=== PATIENT | female | born 1980 | race Caucasian/White ===

== ENCOUNTER 2017-01-27 17:23 | Emergency (ER) | payer MEDICAID ==
[~2017-01-27] VITALS: Ht 162.6 cm; Wt 122.2 kg
[2017-01-27 17:26] VITALS: BP 116/75
[2017-01-27] MEDS ORDERED: DIAZEPAM 5 MG/ML, 2ML IM STA (18:12)
[2017-01-27] MEDS ORDERED: DIAZEPAM 5 MG TABLET ONE (18:22)
[2017-01-27] MEDS ORDERED: OXYcodone/APAP 5/325MG TABLET ONE (18:22)
[2017-01-27] MEDS ORDERED: OXYcodone/APAP 5/325MG TABLET PO ONE (18:30)
== END 2017-01-27 19:21 | disposition home or self-care (01) ==
LOC: ED 19:15
DX: S39.012A Strain of muscle, fascia and tendon of lower back, initial encounter (principal); M51.36 Other intervertebral disc degeneration, lumbar region; M54.41 Lumbago with sciatica, right side; X58.XXXA Exposure to other specified factors, initial encounter; Y93.89 Activity, other specified; Y92.89 Other specified places as the place of occurrence of the external cause; Y99.9 Unspecified external cause status
CPT/HCPCS: 72110; 96372; 99284; J3360; J7512

== ENCOUNTER 2017-04-28 16:31 | Emergency (ER) | payer MEDICAID ==
[~2017-04-28] VITALS: Ht 162.6 cm; Wt 117.1 kg
[2017-04-28] MEDS ORDERED: KETOROLAC 30 MG/1 ML IM ONE (17:30)
[2017-04-28] MEDS ORDERED: DIAZEPAM 5 MG TABLET PO ONE (17:30)
[2017-04-28] MEDS ORDERED: DIAZEPAM 5 MG TABLET ONE (17:37)
[2017-04-28] MEDS ORDERED: KETOROLAC 30 MG/1 ML ONE (17:37)
[2017-04-28 18:44] VITALS: BP 116/78
== END 2017-04-28 19:48 | disposition home or self-care (01) ==
LOC: ED 19:42
DX: M54.41 Lumbago with sciatica, right side (principal)
CPT/HCPCS: 96372; 99283; J1885

== ENCOUNTER 2017-06-28 08:01 | Emergency (ER) | payer MEDICAID ==
[~2017-06-28] VITALS: Ht 162.6 cm; Wt 119.8 kg
[2017-06-28 09:05] LABS: RAPID INFLUENZA A Negative (Negative); RAPID INFLUENZA B Negative (Negative)
[2017-06-28 10:18] VITALS: BP 98/45
== END 2017-06-28 10:29 | disposition home or self-care (01) ==
LOC: ED 08:47
DX: J20.8 Acute bronchitis due to other specified organisms (principal)
CPT/HCPCS: 71020; 87400; 93005; 99285

== ENCOUNTER 2017-09-16 16:37 | Emergency (ER) | payer MEDICAID ==
[~2017-09-16] VITALS: Ht 162.6 cm; Wt 118.9 kg
[2017-09-16] MEDS ORDERED: SODIUM CHLORIDE 0.9% 1,000ML IVBOLUS ONE (17:00)
[2017-09-16 17:29] LABS: BASOPHILS # (AUTO) 0.09 x10^3/uL (0-0.1); BASOPHILS % (AUTO) 1 % (0-1); EOSINOPHILS # (AUTO) 0.15 x10^3/uL (0-0.4); EOSINOPHILS % (AUTO) 1 % (1-7); LYMPHOCYTES # (AUTO) 2.13 x10^3/uL (1-3.4); LYMPHOCYTES % (AUTO) 20 % (22-44); MD NO; MEAN CORPUSCULAR HEMOGLOBIN 28.5 pg (27.0-34.8); MEAN CORPUSCULAR HGB CONC 33.1 g/dL (32.4-35.8); MEAN CORPUSCULAR VOLUME 86.1 fL (80-100); MEAN PLATELET VOLUME 8.4 fL (7.4-10.4); MONOCYTES # (AUTO) 0.61 x10^3/uL (0.2-0.8); MONOCYTES % (AUTO) 6 % (2-9); NEUTROPHILS # (AUTO) 7.93 x10^3/uL (1.8-6.8); NEUTROPHILS % (AUTO) 73 % (42-75); PLATELET COUNT 362 x10^3/uL (130-400); RED BLOOD COUNT 4.84 x10^6/uL (3.82-5.3); RED CELL DISTRIBUTION WIDTH 14.9 % (9.6-15.2)
[2017-09-16 17:33] LABS: ALBUMIN 3.7 g/dL (3.4-5.0); ANION GAP 7 mmol/L (5-15); CALCIUM 9.2 mg/dL (8.5-10.1); CHLORIDE 106 mmol/L (98-107)
[2017-09-16 17:36] LABS: ALANINE AMINOTRANSFERASE 25 U/L (12-78); ALKALINE PHOSPHATASE 68 U/L (45-117); BILIRUBIN,TOTAL 0.5 mg/dL (0.2-1.0); CREATININE 1.22 mg/dL (0.55-1.02)
[2017-09-16 21:27] VITALS: BP 117/68
== END 2017-09-16 21:59 | disposition home or self-care (01) ==
LOC: ED 21:58
DX: R42 Dizziness and giddiness (principal)
CPT/HCPCS: 36415; 70450; 80053; 84703; 85025; 93005; 99285

== ENCOUNTER 2018-04-29 08:59 | Emergency (ER) | payer MEDICAID ==
[~2018-04-29] VITALS: Ht 162.6 cm; Wt 117.1 kg
[2018-04-29 09:06] VITALS: BP 140/81
[2018-04-29 09:52] LABS: ALBUMIN 3.6 g/dL (3.4-5.0); ANION GAP 7 mmol/L (5-15); CALCIUM 8.9 mg/dL (8.5-10.1); CHLORIDE 109 mmol/L (98-107); CREATININE 0.84 mg/dL (0.55-1.02)
[2018-04-29 09:53] LABS: BASOPHILS # (AUTO) 0.06 x10^3/uL (0-0.1); BASOPHILS % (AUTO) 1 % (0-1); EOSINOPHILS # (AUTO) 0.18 x10^3/uL (0-0.4); EOSINOPHILS % (AUTO) 2 % (1-7); LYMPHOCYTES # (AUTO) 1.27 x10^3/uL (1-3.4); LYMPHOCYTES % (AUTO) 16 % (22-44); MD NO; MEAN CORPUSCULAR HEMOGLOBIN 28.6 pg (27.0-34.8); MEAN CORPUSCULAR HGB CONC 33.1 g/dL (32.4-35.8); MEAN CORPUSCULAR VOLUME 86.5 fL (80-100); MEAN PLATELET VOLUME 8.9 fL (7.4-10.4); MONOCYTES # (AUTO) 0.58 x10^3/uL (0.2-0.8); MONOCYTES % (AUTO) 7 % (2-9); NEUTROPHILS # (AUTO) 5.81 x10^3/uL (1.8-6.8); NEUTROPHILS % (AUTO) 74 % (42-75); PLATELET COUNT 338 x10^3/uL (130-400); RED BLOOD COUNT 4.53 x10^6/uL (3.82-5.3)
[2018-04-29 10:21] LABS: MICROSCOPIC AUTO
[2018-04-29 10:22] LABS: CULTURE INDICATED? NO
== END 2018-04-29 11:43 | disposition home or self-care (01) ==
LOC: ED 10:28
DX: R10.2 Pelvic and perineal pain (principal); Z90.49 Acquired absence of other specified parts of digestive tract
CPT/HCPCS: 36415; 76830; 80048; 81001; 82040; 84703; 85025; 99285

== ENCOUNTER 2018-08-12 17:44 | Emergency (ER) | payer MEDICAID ==
[~2018-08-12] VITALS: Ht 165.1 cm; Wt 116.6 kg
[2018-08-12 18:28] LABS: BASOPHILS # (AUTO) 0.03 x10^3/uL (0-0.1); BASOPHILS % (AUTO) 0 % (0-1); EOSINOPHILS # (AUTO) 0.17 x10^3/uL (0-0.4); EOSINOPHILS % (AUTO) 2 % (1-7); LYMPHOCYTES # (AUTO) 1.92 x10^3/uL (1-3.4); LYMPHOCYTES % (AUTO) 22 % (22-44); MD NO; MEAN CORPUSCULAR HEMOGLOBIN 29.3 pg (27.0-34.8); MEAN CORPUSCULAR HGB CONC 33.7 g/dL (32.4-35.8); MEAN PLATELET VOLUME 8.4 fL (7.4-10.4); MONOCYTES # (AUTO) 0.55 x10^3/uL (0.2-0.8); MONOCYTES % (AUTO) 6 % (2-9); NEUTROPHILS # (AUTO) 6.07 x10^3/uL (1.8-6.8); NEUTROPHILS % (AUTO) 69 % (42-75); PLATELET COUNT 358 x10^3/uL (130-400); RED BLOOD COUNT 4.32 x10^6/uL (3.82-5.3); RED CELL DISTRIBUTION WIDTH 14.4 % (9.6-15.2)
[2018-08-12 18:41] LABS: ALBUMIN 3.6 g/dL (3.4-5.0); ANION GAP 8 mmol/L (5-15); CALCIUM 8.9 mg/dL (8.5-10.1); CHLORIDE 107 mmol/L (98-107)
[2018-08-12 18:59] LABS: CREATININE 0.82 mg/dL (0.55-1.02)
--- NOTE | 2018-08-12 19:16 | NUR ---
PT. TO ROOM FROM LOBBY. REPORT FROM VIOLA VILLALOBOS TO ASSUME FULL PT. CARE AT THIS TIME.
--- NOTE | 2018-08-12 19:27 | NUR ---
PT. OUT OF ROOM FOR US.
[2018-08-12 20:15] VITALS: BP 109/75
== END 2018-08-12 20:16 | disposition home or self-care (01) ==
LOC: ED 20:10
DX: O03.9 Complete or unspecified spontaneous abortion without complication (principal)
CPT/HCPCS: 36415; 76801; 80048; 82040; 84702; 85025; 86901; 99284

== ENCOUNTER 2019-09-18 16:59 | Emergency (ER) | payer MEDICAID ==
[~2019-09-18] VITALS: Ht 165.1 cm; Wt 120.0 kg
--- NOTE | 2019-09-18 17:23 | NUR ---
MANAGER ASSURANCE: PT AMBULATORY TO ROOM FROM LOBBY
--- NOTE | 2019-09-18 17:37 | NUR ---
THIS IS A 38 YO F W/ C/O BILAT TINGLING/PAIN IN HANDS THAT RADIATES INTO UPPR ARM "FOR MONTHS BUT HAS GOTTEN PROGRESSIVELY WORSE. PT REPORTS IT IS KEEPING HER UP AT NIGHT. HAS TAKEN TYLENOL W/ NO RELIEF. CMS INTACT. VS STABLE. NADN. PT CONNECTED TO MONITORING. SITTING ON [email or web address] W/ CALL LIGHT IN REACH. AWAITING ED EVAL.
[2019-09-18 17:40] VITALS: BP 126/84
--- NOTE | 2019-09-18 18:45 | NUR ---
Patient given discharge instructions and they have confirmed that they understand the instructions. Patient ambulatory with steady gait.
== END 2019-09-18 18:47 | disposition home or self-care (01) ==
LOC: ED 18:38
DX: O26.892 Other specified pregnancy related conditions, second trimester (principal); G56.01 Carpal tunnel syndrome, right upper limb; Z3A.16 16 weeks gestation of pregnancy; Z90.49 Acquired absence of other specified parts of digestive tract
CPT/HCPCS: 29125; 99283

== ENCOUNTER 2019-10-20 20:04 | Outpatient (CLI) | payer MEDICAID ==
[~2019-10-20] VITALS: Ht 162.6 cm; Wt 121.8 kg
== END 2019-10-20 20:50 | disposition home or self-care (01) ==
LOC: LDOP 20:04
PROVIDERS: ATTEND Obstetrics & Gynecology
DX: O46.92 Antepartum hemorrhage, unspecified, second trimester (principal); Z3A.22 22 weeks gestation of pregnancy
CPT/HCPCS: 99211; G0463

== ENCOUNTER 2020-01-09 11:38 | Emergency (ER) | payer MEDICAID ==
[~2020-01-09] VITALS: Ht 175.3 cm; Wt 130.4 kg
[2020-01-09 11:40] VITALS: BP 139/85
== END 2020-01-09 13:35 | disposition home or self-care (01) ==
LOC: ED 12:13
DX: O99.89 Other specified diseases and conditions complicating pregnancy, childbirth and the puerperium (principal); O09.513 Supervision of elderly primigravida, third trimester; G56.01 Carpal tunnel syndrome, right upper limb; Z3A.32 32 weeks gestation of pregnancy
CPT/HCPCS: 99281; 99282

== ENCOUNTER 2020-01-19 12:01 | Outpatient (CLI) | payer MEDICAID ==
[~2020-01-19] VITALS: Ht 165.1 cm; Wt 128.0 kg
== END 2020-01-19 13:35 | disposition home or self-care (01) ==
LOC: LDOP 12:01
PROVIDERS: ATTEND Obstetrics & Gynecology
DX: O44.53 Low lying placenta with hemorrhage, third trimester (principal); O24.419 Gestational diabetes mellitus in pregnancy, unspecified control; Z3A.35 35 weeks gestation of pregnancy; Z90.49 Acquired absence of other specified parts of digestive tract
CPT/HCPCS: 59025; 99211; G0463

== ENCOUNTER 2020-02-05 22:44 | Inpatient (IN) | payer MEDICAID ==
[~2020-02-05] VITALS: Ht 165.1 cm; Wt 130.0 kg
[2020-02-05 23:23] VITALS: BP 166/106
[2020-02-05] MEDS: LACTATED RINGERS 1,000 ML IV SCH (23:40)
[2020-02-05 23:43] LABS: BASOPHILS # (AUTO) 0.02 x10^3/uL (0-0.1); BASOPHILS % (AUTO) 0 % (0-1); EOSINOPHILS # (AUTO) 0.17 x10^3/uL (0-0.4); EOSINOPHILS % (AUTO) 2 % (1-7); LYMPHOCYTES # (AUTO) 1.34 x10^3/uL (1-3.4); LYMPHOCYTES % (AUTO) 16 % (22-44); MD NO; MEAN CORPUSCULAR HEMOGLOBIN 26.9 pg (27.0-34.8); MEAN CORPUSCULAR HGB CONC 32.6 g/dL (32.4-35.8); MEAN CORPUSCULAR VOLUME 82.6 fL (80-100); MEAN PLATELET VOLUME 9.3 fL (7.4-10.4); MONOCYTES # (AUTO) 0.65 x10^3/uL (0.2-0.8); MONOCYTES % (AUTO) 8 % (2-9); NEUTROPHILS # (AUTO) 6.47 x10^3/uL (1.8-6.8); NEUTROPHILS % (AUTO) 75 % (42-75); PLATELET COUNT 300 x10^3/uL (130-400); RED BLOOD COUNT 3.74 x10^6/uL (3.82-5.3); RED CELL DISTRIBUTION WIDTH 15.4 % (9.6-15.2)
[2020-02-05 23:56] LABS: ALANINE AMINOTRANSFERASE 19 U/L (12-78); ALBUMIN 2.3 g/dL (3.4-5.0); ANION GAP 8 mmol/L (5-15); CALCIUM 9.6 mg/dL (8.5-10.1); CHLORIDE 111 mmol/L (98-107); CREATININE 0.75 mg/dL (0.55-1.02)
[2020-02-05 23:58] LABS: ALKALINE PHOSPHATASE 174 U/L (45-117); BILIRUBIN,TOTAL 0.3 mg/dL (0.2-1.0); TOTAL PROTEIN 6.5 g/dL (6.4-8.2)
[2020-02-06 00:07] LABS: INTERNATIONAL NORMALIZED RATIO 0.89 (0.93-1.1); PROTHROMBIN TIME 9.4 Seconds (9.6-11.5)
[2020-02-06 00:24] LABS: MICROSCOPIC INDICATED
[2020-02-06 00:37] LABS: CREATININE,URINE RANDOM 74.6 mg/dL
[2020-02-06] MEDS: LACTATED RINGERS 1,000 ML IV SCH ×7 (03:30→23:30)
[2020-02-06] MEDS ORDERED: PENICILLIN GK 5,000,000 UNITS in DEXTROSE 5% 100 ML IVPB ONE (06:30)
[2020-02-06] MEDS ORDERED: NEWBORN KIT ONE (06:31)
[2020-02-06] MEDS ORDERED: SODIUM CITRATE/CITRIC ACID 30 ML UDC ONE (06:32)
[2020-02-06] MEDS ORDERED: METOCLOPRAMIDE 5 MG/ML, 2ML ONE (06:32)
[2020-02-06] MEDS ORDERED: PENICILLIN GK 2,500,000 UNITS in DEXTROSE 5% 100 ML IVPB SCH (07:00)
[2020-02-06] MEDS ORDERED: LACTATED RINGERS 1,000 ML IV SCH (08:38)
[2020-02-06] MEDS ORDERED: LACTATED RINGERS 1,000 ML IVBOLUS ONE (09:00)
[2020-02-06] MEDS ORDERED: METOCLOPRAMIDE 5 MG/ML, 2ML IV ONE (09:00)
[2020-02-06] MEDS ORDERED: SODIUM CITRATE/CITRIC ACID 30 ML UDC PO ONE (09:00)
[2020-02-06] MEDS ORDERED: FENTANYL PF 100 MCG/2ML ONE ×2 (10:09→14:58)
[2020-02-06] MEDS ORDERED: OXYTOCIN 30U/ 0.9% NaCL 500ML 500 ML ONE ×2 (10:21→17:05)
[2020-02-06] MEDS ORDERED: OXYTOCIN 30U/ 0.9% NaCL 500ML ONE (11:16)
[2020-02-06] MEDS ORDERED: OXYTOCIN 10 UNITS/ML, 1ML ONE ×4 (12:01)
[2020-02-06] MEDS ORDERED: CEFAZOLIN 1,000 MG ONE ×3 (12:01)
[2020-02-06] MEDS ORDERED: EPHEDRINE 50 MG/ML, 1ML ONE (12:05)
[2020-02-06] MEDS ORDERED: KETOROLAC 30 MG/1 ML ONE (12:09)
[2020-02-06] MEDS ORDERED: EPHEDRINE 50 MG/ML, 1ML IM PRN (12:30)
[2020-02-06] MEDS ORDERED: hydrALAzine 20 MG/ML, 1ML IV PRN ×2 (12:30→16:00)
[2020-02-06] MEDS ORDERED: ACETAMINOPHEN 325 MG TABLET PO PRN ×2 (12:30)
[2020-02-06] MEDS ORDERED: DIPHENHYDRAMINE 50 MG/ML, 1ML IVPush PRN ×2 (12:30→16:00)
[2020-02-06] MEDS ORDERED: morphine SULFATE 10 MG/ML, 1ML IVPush PRN (12:30)
[2020-02-06] MEDS ORDERED: EPHEDRINE 50 MG/ML, 1ML IVPush PRN ×2 (12:30→16:00)
[2020-02-06] MEDS ORDERED: MISOPROSTOL 200 MCG TABLET PR PRN (12:30)
[2020-02-06] MEDS ORDERED: ONDANSETRON 2MG/ML, 2ML IVPush PRN ×2 (12:30→16:00)
[2020-02-06] MEDS ORDERED: METOCLOPRAMIDE 5 MG/ML, 2ML IVPush PRN ×2 (12:30→16:00)
[2020-02-06] MEDS ORDERED: OXYcodone 5 MG/5 ML ORAL.SOL UDC PO PRN ×2 (12:30→16:00)
[2020-02-06] MEDS: KETOROLAC 30 MG/1 ML IV SCH ×2 (12:30→18:32)
[2020-02-06] MEDS ORDERED: FENTANYL PF 100 MCG/2ML IV PRN ×2 (12:30→16:00)
[2020-02-06] MEDS ORDERED: CARBOPROST TROMETHAMINE 250 MCG/ML, 1ML IM PRN (12:30)
[2020-02-06] MEDS ORDERED: LABETALOL 5MG/ML, 20ML IV PRN ×2 (12:30→16:00)
[2020-02-06] MEDS ORDERED: MORPHINE SULFATE 4 MG/ML, 1ML IVPush PRN (12:30)
[2020-02-06] MEDS ORDERED: ACETAMINOPHEN 325 MG TABLET ONE (13:33)
[2020-02-06] MEDS ORDERED: morphine SULFATE 10 MG/ML, 1ML ONE (13:57)
[2020-02-06] MEDS: morphine SULFATE 10 MG/ML, 1ML IVPush PRN ×2 (14:00→14:19)
[2020-02-06] MEDS: OXYTOCIN 30U/ 0.9% NaCL 500ML 500 ML IV SCH ×2 (14:18→17:08)
[2020-02-06] MEDS ORDERED: HYDROmorphone 2 MG/ML, 1ML ONE (14:27)
[2020-02-06] MEDS ORDERED: TRANEXAMIC ACID 100 MG/ML, 10ML ONE (14:29)
[2020-02-06 14:57] LABS: MEAN CORPUSCULAR HEMOGLOBIN 26.7 pg (27.0-34.8); MEAN CORPUSCULAR HGB CONC 32.1 g/dL (32.4-35.8); MEAN CORPUSCULAR VOLUME 83.1 fL (80-100); MEAN PLATELET VOLUME 9.3 fL (7.4-10.4); PLATELET COUNT 291 x10^3/uL (130-400); RED BLOOD COUNT 3.28 x10^6/uL (3.82-5.3); RED CELL DISTRIBUTION WIDTH 15.2 % (9.6-15.2)
[2020-02-06] MEDS ORDERED: hydrALAzine 20 MG/ML, 1ML ONE (14:59)
[2020-02-06] MEDS ORDERED: CARBOPROST TROMETHAMINE 250 MCG/ML, 1ML IM ONE (15:00)
[2020-02-06] MEDS ORDERED: TRANEXAMIC ACID 100 MG/ML, 10ML TP ONE (15:00)
[2020-02-06] MEDS ORDERED: MISOPROSTOL 200 MCG TABLET ONE (15:00)
[2020-02-06] MEDS ORDERED: HYDROmorphone 2 MG/ML, 1ML IVPush PRN (15:00)
[2020-02-06] MEDS ORDERED: DIPHENOXYLATE/ATROPINE TABLET PO PRN (15:00)
[2020-02-06 15:09] LABS: BASOPHILS # (AUTO) 0.01 x10^3/uL (0-0.1); BASOPHILS % (AUTO) 0 % (0-1); EOSINOPHILS # (AUTO) 0.24 x10^3/uL (0-0.4); EOSINOPHILS % (AUTO) 2 % (1-7); LYMPHOCYTES # (AUTO) 1.39 x10^3/uL (1-3.4); LYMPHOCYTES % (AUTO) 11 % (22-44); MD SCAN; MONOCYTES # (AUTO) 0.64 x10^3/uL (0.2-0.8); MONOCYTES % (AUTO) 5 % (2-9); NEUTROPHILS % (AUTO) 82 % (42-75)
[2020-02-06 15:31] LABS: PROTIME 9.6 Seconds (9.6-11.5)
[2020-02-06] MEDS ORDERED: HYDROmorphone 1 MG/ML, 1ML INJ IVPush PRN (16:00)
[2020-02-06] MEDS ORDERED: LABETALOL 100 MG TABLET ONE (16:10)
[2020-02-06 16:11] LABS: D-DIMER (DIC) 5.03 ug/mlFEU (0.00-0.52)
[2020-02-06] MEDS ORDERED: FUROSEMIDE 20 MG/2 ML IV ONE (17:00)
[2020-02-06] MEDS ORDERED: CEFAZOLIN 1,000 MG IVPB ONE (17:00)
[2020-02-06] MEDS: POTASSIUM CHLORIDE 20 MEQ TAB.ER.PRT PO SCH (17:26)
[2020-02-06] MEDS ORDERED: CEFAZOLIN 3,000 MG in SODIUM CHLORIDE 0.9% 100 ML IV ONE (17:30)
[2020-02-06 18:29] VITALS: BP 136/90
[2020-02-06] MEDS: LABETALOL 100 MG TABLET PO SCH (18:32)
[2020-02-06 19:50] VITALS: BP 119/84
[2020-02-06 21:07] LABS: BASOPHILS # (AUTO) 0.02 x10^3/uL (0-0.1); BASOPHILS % (AUTO) 0 % (0-1); EOSINOPHILS # (AUTO) 0.14 x10^3/uL (0-0.4); EOSINOPHILS % (AUTO) 1 % (1-7); LYMPHOCYTES # (AUTO) 1.05 x10^3/uL (1-3.4); LYMPHOCYTES % (AUTO) 9 % (22-44); MD NO; MEAN CORPUSCULAR HEMOGLOBIN 27.1 pg (27.0-34.8); MEAN CORPUSCULAR HGB CONC 32.6 g/dL (32.4-35.8); MEAN CORPUSCULAR VOLUME 83.2 fL (80-100); MEAN PLATELET VOLUME 9.6 fL (7.4-10.4); MONOCYTES % (AUTO) 7 % (2-9); NEUTROPHILS # (AUTO) 9.86 x10^3/uL (1.8-6.8); NEUTROPHILS % (AUTO) 83 % (42-75); PLATELET COUNT 234 x10^3/uL (130-400); RED BLOOD COUNT 3.36 x10^6/uL (3.82-5.3); RED CELL DISTRIBUTION WIDTH 15.1 % (9.6-15.2)
[2020-02-06] MEDS: OXYcodone/APAP 5/325MG TABLET PO PRN (21:16)
[2020-02-07] VITALS (9 sets, daily range): BP systolic 94–135; BP diastolic 61–85
[2020-02-07] MEDS: KETOROLAC 30 MG/1 ML IV SCH ×4 (00:22→18:26)
[2020-02-07] MEDS: OXYcodone/APAP 5/325MG TABLET PO PRN ×5 (01:14→19:59)
[2020-02-07] MEDS: LACTATED RINGERS 1,000 ML IV SCH ×8 (04:29→23:30)
[2020-02-07] MEDS: LABETALOL 100 MG TABLET PO SCH ×2 (08:00→17:47)
[2020-02-07] MEDS: PRENATAL VIT/IRON/FA 1 EACH TABLET PO SCH (08:26)
[2020-02-07] MEDS: DOCUSATE 100 MG CAPSULE PO PRN ×2 (08:26→19:59)
[2020-02-07] MEDS: OXYTOCIN 30U/ 0.9% NaCL 500ML 500 ML IV SCH ×2 (08:29→17:48)
[2020-02-07] MEDS: POTASSIUM CHLORIDE 20 MEQ TAB.ER.PRT PO SCH ×2 (08:29→16:56)
[2020-02-07] MEDS: SIMETHICONE 80 MG CHEW TAB PO PRN (19:59)
[2020-02-08] MEDS: KETOROLAC 30 MG/1 ML IV SCH ×2 (00:17→06:31)
[2020-02-08] MEDS: OXYcodone/APAP 5/325MG TABLET PO PRN ×5 (00:17→20:14)
[2020-02-08] MEDS: SIMETHICONE 80 MG CHEW TAB PO PRN ×4 (02:06→20:13)
[2020-02-08] MEDS: LACTATED RINGERS 1,000 ML IV SCH ×2 (04:29)
[2020-02-08] MEDS: OXYTOCIN 30U/ 0.9% NaCL 500ML 500 ML IV SCH (04:29)
[2020-02-08 06:54] LABS: ANION GAP 6 mmol/L (5-15); CALCIUM 8.6 mg/dL (8.5-10.1); CHLORIDE 112 mmol/L (98-107)
[2020-02-08 06:55] LABS: CREATININE 0.81 mg/dL (0.55-1.02)
[2020-02-08 07:45] VITALS: BP 128/75
[2020-02-08] MEDS: LABETALOL 100 MG TABLET PO SCH ×2 (08:00→18:00)
[2020-02-08] MEDS: DOCUSATE 100 MG CAPSULE PO PRN ×2 (08:06→20:13)
[2020-02-08] MEDS: POTASSIUM CHLORIDE 20 MEQ TAB.ER.PRT PO SCH ×2 (08:06→17:21)
[2020-02-08] MEDS: PRENATAL VIT/IRON/FA 1 EACH TABLET PO SCH (08:06)
[2020-02-08] MEDS: IBUPROFEN 800 MG TABLET PO PRN ×2 (12:31→20:13)
[2020-02-08 14:59] VITALS: BP 104/70
[2020-02-08 19:30] VITALS: BP 148/94
[2020-02-09] MEDS: OXYcodone/APAP 5/325MG TABLET PO PRN ×3 (01:23→12:28)
[2020-02-09] MEDS: SIMETHICONE 80 MG CHEW TAB PO PRN ×2 (04:11→12:28)
[2020-02-09] MEDS: IBUPROFEN 800 MG TABLET PO PRN ×2 (04:11→12:28)
[2020-02-09 07:45] VITALS: BP 146/90
[2020-02-09] MEDS: POTASSIUM CHLORIDE 20 MEQ TAB.ER.PRT PO SCH (07:59)
[2020-02-09] MEDS: DOCUSATE 100 MG CAPSULE PO PRN (07:59)
[2020-02-09] MEDS: PRENATAL VIT/IRON/FA 1 EACH TABLET PO SCH (07:59)
[2020-02-09] MEDS: LABETALOL 100 MG TABLET PO SCH (08:00)
[2020-02-09] MEDS ORDERED: IBUP-1222 PO (12:50)
[2020-02-09] MEDS ORDERED: DOCU-131 PO (12:50)
[2020-02-09] MEDS ORDERED: OXYC-302 PO (12:50)
[2020-02-09] MEDS ORDERED: DIPH,PERTUSS(ACELL),TET VAC/PF NC IM-VACC ONE ×2 (15:04→15:30)
== END 2020-02-09 15:43 | disposition home or self-care (01) | DRG 784 ==
LOC: LDOP 22:44 → LDIP 02-06 01:00 → OBSVTOIN 02-06 01:00 → 2NW 02-06 17:51
PROVIDERS: ADMIT Obstetrics & Gynecology; ATTEND Obstetrics & Gynecology
PROC: 10D00Z1 Extraction of Products of Conception, Low, Open Approach (ICD-10-PCS; principal; 2020-02-06)
PROC: 0UT70ZZ Resection of Bilateral Fallopian Tubes, Open Approach (ICD-10-PCS; 2020-02-06)
PROC: 10D17Z9 Manual Extraction of Products of Conception, Retained, Via Natural or Artificial Opening (ICD-10-PCS; 2020-02-06)
PROC: 0U9 Female Reproductive System, Drainage (ICD-10-PCS; 2020-02-06)
DX: O44.33 Partial placenta previa with hemorrhage, third trimester (principal); O72.1 Other immediate postpartum hemorrhage; O09.513 Supervision of elderly primigravida, third trimester; O24.420 Gestational diabetes mellitus in childbirth, diet controlled; O99.214 Obesity complicating childbirth; O69.81X0 Labor and delivery complicated by cord around neck, without compression, not applicable or unspecified; E66.01 Morbid (severe) obesity due to excess calories; Z37.0 Single live birth; Z3A.36 36 weeks gestation of pregnancy; Z83.3 Family history of diabetes mellitus
CPT/HCPCS: 36415; 80048; 80053; 81001; 82570; 82803; 82962; 84156; 85025; 85049; 85379; 85384; 85610; 85730; 86592; 86850; 86900; 86923; 87806; 88302; 90715; G0378; J0690; J1885; J2540; J3010; G0475; J0360; J1940; J2270; J2590; J2765; J7120; P9016

== ENCOUNTER 2020-02-11 13:22 | Emergency (ER) | payer MEDICAID ==
[~2020-02-11] VITALS: Ht 165.1 cm; Wt 126.3 kg
[~2020-02-11 13:22] MED LIST: DOCU-131 PO; IBUP-1222 PO; OXYC-302 PO
[2020-02-11] MEDS ORDERED: SODIUM CHLORIDE FLUSH 10ML SYR IVF ONE (14:30)
[2020-02-11 14:40] LABS: BASOPHILS # (AUTO) 0.02 x10^3/uL (0-0.1); BASOPHILS % (AUTO) 0 % (0-1); EOSINOPHILS # (AUTO) 0.22 x10^3/uL (0-0.4); EOSINOPHILS % (AUTO) 2 % (1-7); LYMPHOCYTES # (AUTO) 1.05 x10^3/uL (1-3.4); LYMPHOCYTES % (AUTO) 12 % (22-44); MD NO; MEAN CORPUSCULAR HEMOGLOBIN 26.9 pg (27.0-34.8); MEAN CORPUSCULAR HGB CONC 31.8 g/dL (32.4-35.8); MONOCYTES # (AUTO) 0.75 x10^3/uL (0.2-0.8); MONOCYTES % (AUTO) 8 % (2-9); NEUTROPHILS # (AUTO) 6.89 x10^3/uL (1.8-6.8); NEUTROPHILS % (AUTO) 77 % (42-75); PLATELET COUNT 451 x10^3/uL (130-400); RED BLOOD COUNT 3.27 x10^6/uL (3.82-5.3); RED CELL DISTRIBUTION WIDTH 15.8 % (9.6-15.2)
--- NOTE | 2020-02-11 14:40 | NUR ---
attempt at piv x2. tech in to attempt. ekg in prog. vss. deneis pain. bilat 2+pitting edema worse on R than L since this am. pt had c section february 05, was home for 2 days. seen at pcp and d dimer was elevated, sent in for us/cta. new c/o sob on exertion while walking up stairs. as
[2020-02-11 14:48] LABS: CHLORIDE 110 mmol/L (98-107)
[2020-02-11 14:57] LABS: ALANINE AMINOTRANSFERASE 40 U/L (12-78); ALBUMIN 2.6 g/dL (3.4-5.0); ALKALINE PHOSPHATASE 143 U/L (45-117); ANION GAP 6 mmol/L (5-15); BILIRUBIN,TOTAL 0.3 mg/dL (0.2-1.0); CALCIUM 8.9 mg/dL (8.5-10.1); TOTAL PROTEIN 6.8 g/dL (6.4-8.2)
--- NOTE | 2020-02-11 15:02 | NUR ---
us iv placed by tech, awaiting cta. nad. as
--- NOTE | 2020-02-11 15:14 | NUR ---
pt on monitoring specialist vss report to hanna cesar. as
--- NOTE | 2020-02-11 15:30 | NUR ---
REPORT FROM SAFIA ROD ULTRASOUND AT BEDSIDE VSS ON [employer]
--- NOTE | 2020-02-11 16:10 | NUR ---
to ct scan
[2020-02-11] MEDS ORDERED: OMNIPAQUE 350 MG/ML, 100ML BOTTLE ONE (16:32)
[2020-02-11 16:34] VITALS: BP 151/89
== END 2020-02-11 17:23 | disposition home or self-care (01) ==
LOC: ED 17:00
DX: D62 Acute posthemorrhagic anemia (principal); R06.00 Dyspnea, unspecified; R94.31 Abnormal electrocardiogram [ECG] [EKG]; Z90.49 Acquired absence of other specified parts of digestive tract
CPT/HCPCS: 36415; 71275; 80053; 83735; 83880; 85025; 93005; 93970; 99285; Q9967

== ENCOUNTER 2020-02-18 21:15 | Emergency (ER) | payer MEDICAID ==
[~2020-02-18] VITALS: Ht 165.1 cm; Wt 116.4 kg
--- NOTE | 2020-02-18 21:50 | NUR ---
PIV established, blood sent to lab, pt given urine cup and asked to provide urine sample
[2020-02-18 22:00] LABS: BASOPHILS # (AUTO) 0.04 x10^3/uL (0-0.1); BASOPHILS % (AUTO) 0 % (0-1); EOSINOPHILS # (AUTO) 0.14 x10^3/uL (0-0.4); EOSINOPHILS % (AUTO) 1 % (1-7); LYMPHOCYTES # (AUTO) 2.01 x10^3/uL (1-3.4); LYMPHOCYTES % (AUTO) 14 % (22-44); MD NO; MEAN CORPUSCULAR HEMOGLOBIN 26.6 pg (27.0-34.8); MEAN CORPUSCULAR HGB CONC 32.2 g/dL (32.4-35.8); MEAN CORPUSCULAR VOLUME 82.6 fL (80-100); MONOCYTES # (AUTO) 0.64 x10^3/uL (0.2-0.8); MONOCYTES % (AUTO) 5 % (2-9); NEUTROPHILS # (AUTO) 11.22 x10^3/uL (1.8-6.8); NEUTROPHILS % (AUTO) 80 % (42-75); PLATELET COUNT 467 x10^3/uL (130-400); RED BLOOD COUNT 3.82 x10^6/uL (3.82-5.3); RED CELL DISTRIBUTION WIDTH 15.2 % (9.6-15.2)
[2020-02-18] MEDS ORDERED: SODIUM CHLORIDE FLUSH 10ML SYR IVF ONE (22:00)
[2020-02-18 22:09] LABS: ALANINE AMINOTRANSFERASE 17 U/L (12-78); ALBUMIN 3.1 g/dL (3.4-5.0); ANION GAP 8 mmol/L (5-15); CALCIUM 9.3 mg/dL (8.5-10.1); CHLORIDE 107 mmol/L (98-107); CREATININE 1.14 mg/dL (0.55-1.02)
[2020-02-18 22:11] LABS: ALKALINE PHOSPHATASE 116 U/L (45-117); BILIRUBIN,TOTAL 0.4 mg/dL (0.2-1.0); TOTAL PROTEIN 7.7 g/dL (6.4-8.2)
--- NOTE | 2020-02-18 22:18 | NUR ---
urine collected and sent to lab
[2020-02-18 22:27] LABS: MICROSCOPIC INDICATED
[2020-02-18] MEDS ORDERED: OMNIPAQUE 350 MG/ML, 100ML BOTTLE ONE (23:46)
[2020-02-19] MEDS ORDERED: CIPROFLOXACIN/PMX 400MG/200ML 200 ML ONE (00:15)
[2020-02-19] MEDS ORDERED: METRONIDAZOLE PMX 500MG/100ML 0 ML ONE (00:15)
[2020-02-19] MEDS ORDERED: CIPROFLOXACIN/PMX 400MG/200ML 200 ML IV ONE (00:30)
[2020-02-19] MEDS ORDERED: METRONIDAZOLE PMX 500MG/100ML 100 ML IV ONE (00:30)
[2020-02-19] MEDS ORDERED: HYDROcodone/APAP 5/325 TABLET ONE (00:44)
--- NOTE | 2020-02-19 00:49 | NUR ---
IV ABX INFUSING AT THIS TIME, PER DR TARIQ, PT TO FINISH IV ABX THEN MAY BE DCED HOME. PT INFORMED OF PLAN OF CARE
[2020-02-19] MEDS ORDERED: HYDROcodone/APAP 5/325 TABLET PO ONE (01:00)
--- NOTE | 2020-02-19 01:50 | NUR ---
Break RN: assumed care of pt for Primary RN lunch break only. pt resting in position of comfort with lights dimmed. ABX infusing. no apparent distress
--- NOTE | 2020-02-19 02:24 | NUR ---
Break RN: cipro infusion completed. pt resting in position of comfort
[2020-02-19] MEDS ORDERED: METRONIDAZOLE PMX 500MG/100ML 100 ML ONE (02:25)
[2020-02-19 05:01] VITALS: BP 114/66
== END 2020-02-19 05:03 | disposition home or self-care (01) ==
LOC: ED 23:22
DX: K57.32 Diverticulitis of large intestine without perforation or abscess without bleeding (principal); N30.01 Acute cystitis with hematuria; N99.89 Other postprocedural complications and disorders of genitourinary system; Z90.49 Acquired absence of other specified parts of digestive tract
CPT/HCPCS: 36415; 74177; 80053; 81001; 83690; 85025; 86850; 86900; 87086; 96365; 96367; 99285; J0744; Q9967; 96366

== ENCOUNTER → 2020-05-29 | Outpatient (CLI) | payer MEDICAID | END | disposition home or self-care (01) | LOC: STAR 15:28 | PROVIDERS: ATTEND Obstetrics & Gynecology | DX: Z01.812 Encounter for preprocedural laboratory examination (principal); N81.10 Cystocele, unspecified; N93.9 Abnormal uterine and vaginal bleeding, unspecified; N80.0 Endometriosis of uterus; Z20.828 Contact with and (suspected) exposure to other viral communicable diseases | CPT/HCPCS: 36415; 87635 ==

== ENCOUNTER 2020-06-02 07:28 | Day surgery (SDC) | payer MEDICAID ==
[2020-05-29 16:02] VITALS: BP 110/83
[~2020-06-02] VITALS: Ht 165.1 cm; Wt 115.3 kg
[~2020-06-02 07:28] MED LIST changes: +BUPIVACAINE/PF 0.25% ONE; +FLUORESCEIN SODIUM 500 MG/5 ML ONE
[2020-06-02] MEDS ORDERED: ESTROGENS CONJUGATED VAG CRM 0.625MG/1G, 30GM ONE (07:43)
[2020-06-02] MEDS ORDERED: EPINEPHRINE 1 MG/ML, 1ML ONE (07:43)
[2020-06-02] MEDS ORDERED: BUPIVACAINE/PF 0.25% ONE (07:43)
[2020-06-02] MEDS ORDERED: CHLORHEXIDINE 15 ML UDC MM ONE (08:00)
[2020-06-02] MEDS ORDERED: LACTATED RINGERS 1,000 ML IV SCH (08:00)
[2020-06-02 08:17] LABS: HCG UR SG 1.026 (1.003-1.030)
[2020-06-02] MEDS ORDERED: FENTANYL PF 250 MCG/5ML ONE (08:52)
[2020-06-02] MEDS ORDERED: MIDAZOLAM 1 MG/ML, 2ML ONE (08:52)
[2020-06-02] MEDS ORDERED: LIDOCAINE PF 2%, 5ML ONE (09:06)
[2020-06-02] MEDS ORDERED: METHOCARBAMOL 1,000 MG in DEXTROSE 5% 100 ML IV PRN (09:30)
[2020-06-02] MEDS ORDERED: PROMETHAZINE 25 MG SUPP PR PRN (09:30)
[2020-06-02] MEDS ORDERED: LABETALOL 5MG/ML, 20ML IV PRN (09:30)
[2020-06-02] MEDS ORDERED: ONDANSETRON 2MG/ML, 2ML IVPush PRN (09:30)
[2020-06-02] MEDS ORDERED: HYDROmorphone 1 MG/ML, 1ML INJ IVPush PRN (09:30)
[2020-06-02] MEDS ORDERED: OXYcodone 5 MG/5 ML ORAL.SOL UDC PO PRN (09:30)
[2020-06-02] MEDS ORDERED: hydrALAzine 20 MG/ML, 1ML IV PRN (09:30)
[2020-06-02] MEDS ORDERED: ACETAMINOPHEN 325 MG TABLET PO PRN (09:30)
[2020-06-02] MEDS ORDERED: PROMETHAZINE 25 MG/ML, 1ML IVPush PRN (09:30)
[2020-06-02] MEDS ORDERED: SUCCINYLCHOLINE 20 MG/ML, 10ML ONE (11:20)
[2020-06-02] MEDS ORDERED: DEXAMETHASONE 4 MG/ML, 1ML ONE (11:20)
[2020-06-02] MEDS ORDERED: ONDANSETRON 2MG/ML, 2ML ONE ×2 (11:20→12:18)
[2020-06-02] MEDS ORDERED: GLYCOPYRROLATE 0.2MG/1ML, 5ML ONE (11:20)
[2020-06-02] MEDS ORDERED: NEOSTIGMINE 1 MG/ML, 10ML ONE (11:20)
[2020-06-02] MEDS ORDERED: PROPOFOL 10 MG/ML, 20ML ONE (11:20)
[2020-06-02] MEDS ORDERED: FENTANYL PF 100 MCG/2ML ONE ×2 (11:20→12:25)
[2020-06-02] MEDS ORDERED: ROCURONIUM 10MG/ML,5ML ONE (11:20)
[2020-06-02] MEDS ORDERED: CEFAZOLIN 1,000 MG ONE (11:20)
[2020-06-02] MEDS ORDERED: KETOROLAC 30 MG/1 ML ONE (12:06)
[2020-06-02] MEDS: FENTANYL PF 100 MCG/2ML IV PRN ×2 (12:27→12:34)
[2020-06-02] MEDS ORDERED: KETOROLAC 30 MG/1 ML IVPush ONE (12:30)
[2020-06-02] MEDS ORDERED: OXYcodone IR 5MG TABLET ONE (15:12)
== END 2020-06-02 15:30 | disposition home or self-care (01) ==
LOC: OUT 07:28
PROVIDERS: ATTEND Obstetrics & Gynecology
DX: N93.9 Abnormal uterine and vaginal bleeding, unspecified (principal); N94.6 Dysmenorrhea, unspecified; N81.11 Cystocele, midline; N81.6 Rectocele; N73.6 Female pelvic peritoneal adhesions (postinfective); R10.2 Pelvic and perineal pain; Z79.899 Other long term (current) drug therapy; Z90.79 Acquired absence of other genital organ(s); Z90.49 Acquired absence of other specified parts of digestive tract; Z83.3 Family history of diabetes mellitus
CPT/HCPCS: 57240; 58550; 81025; 88307; J0171; J0690; J1100; J1885; J2250; J2405; J2704; J2710; J2800; J3010; J7120; S2900; J0330

== ENCOUNTER 2020-06-13 11:27 | Emergency (ER) | payer MEDICAID ==
[~2020-06-13] VITALS: Ht 165.1 cm; Wt 105.0 kg
[~2020-06-13 11:27] MED LIST changes: -BUPIVACAINE/PF 0.25% ONE; -FLUORESCEIN SODIUM 500 MG/5 ML ONE
--- NOTE | 2020-06-13 11:38 | NUR ---
BIBA FROM HOME, PT C/O RIGHT FLANK PAIN THAT RADIATES TO ABD, PT REPORTS RECENT LAP HYSTERECTOMY ON 06/02/20. PLACED ON VITALS MONITORS, CALL LIGHT WITHIN REACH.
[2020-06-13] MEDS ORDERED: MORPHINE SULFATE 4 MG/ML, 1ML ONE ×2 (12:12→15:51)
[2020-06-13] MEDS ORDERED: KETOROLAC 30 MG/1 ML ONE (12:12)
[2020-06-13] MEDS ORDERED: ONDANSETRON 2MG/ML, 2ML ONE (12:12)
[2020-06-13 12:23] LABS: BASOPHILS % (AUTO) 1 % (0-1); EOSINOPHILS % (AUTO) 2 % (1-7); LYMPHOCYTES % (AUTO) 10 % (22-44); MEAN CORPUSCULAR HEMOGLOBIN 25.2 pg (27.0-34.8); MEAN CORPUSCULAR HGB CONC 31.2 g/dL (32.4-35.8); MEAN PLATELET VOLUME 7.9 fL (7.4-10.4); MONOCYTES % (AUTO) 5 % (2-9); NEUTROPHILS % (AUTO) 82 % (42-75); PLATELET COUNT 427 x10^3/uL (130-400); RED CELL DISTRIBUTION WIDTH 16.4 % (9.6-15.2)
[2020-06-13] MEDS: MORPHINE SULFATE 4 MG/ML, 1ML IVPush PRN ×2 (12:30→15:54)
[2020-06-13] MEDS ORDERED: KETOROLAC 30 MG/1 ML IVPush ONE (12:30)
[2020-06-13] MEDS ORDERED: ONDANSETRON 2MG/ML, 2ML IVPush ONE (12:30)
[2020-06-13 12:31] LABS: ALBUMIN 3.9 g/dL (3.4-5.0); ANION GAP 8 mmol/L (5-15); CALCIUM 9.8 mg/dL (8.5-10.1); CHLORIDE 106 mmol/L (98-107)
[2020-06-13 12:35] LABS: ALANINE AMINOTRANSFERASE 20 U/L (12-78); ALKALINE PHOSPHATASE 94 U/L (45-117); BILIRUBIN,TOTAL 0.6 mg/dL (0.2-1.0); CREATININE 1.05 mg/dL (0.55-1.02); TOTAL PROTEIN 8.1 g/dL (6.4-8.2)
[2020-06-13 12:58] LABS: MD SCAN
--- NOTE | 2020-06-13 14:03 | NUR ---
PT REPORTS PAIN HAS SUBSIDED. PT UP TO RESTROOM FOR UA SAMPLE.
[2020-06-13 14:23] LABS: MICROSCOPIC AUTO
[2020-06-13 16:03] VITALS: BP 125/82
== END 2020-06-13 16:06 | disposition home or self-care (01) ==
LOC: ED 16:00
DX: N13.2 Hydronephrosis with renal and ureteral calculous obstruction (principal); R10.9 Unspecified abdominal pain; R11.2 Nausea with vomiting, unspecified
CPT/HCPCS: 36415; 74176; 80053; 81001; 83690; 85025; 87086; 87147; 96374; 96375; 96376; 99284; J1885; J2270; J2405